=== PATIENT | male | born 1995 | race African-American/Black ===

== ENCOUNTER 2020-04-30 10:15 | Emergency (ER) | payer SELFPAY ==
[~2020-04-30] VITALS: Ht 182.9 cm; Wt 95.7 kg
[2020-04-30 10:21] VITALS: Ht 182.9 cm; Wt 95.7 kg
[2020-04-30 12:10] VITALS: BP 132/72
== END 2020-04-30 12:05 | disposition home or self-care (01) ==
LOC: ED 10:15
DX: S86.812A Strain of other muscle(s) and tendon(s) at lower leg level, left leg, initial encounter (principal); X58.XXXA Exposure to other specified factors, initial encounter; Y93.67 Activity, basketball; Y92.310 Basketball court as the place of occurrence of the external cause; Y99.8 Other external cause status